=== PATIENT | female | born 1955 | race African-American/Black ===

== ENCOUNTER 2022-01-20 18:02 | Emergency (ER) | payer BC, OTHER ==
[~2022-01-20] VITALS: Ht 152.4 cm; Wt 74.0 kg
[2022-01-20 18:09] VITALS: BP 175/63
[2022-01-20 19:16] LABS: BASOPHILS % 0.9 % (0.0-2.0); EOSINOPHILS % 1.5 % (0.0-5.0); HEMATOCRIT. 38.3 % (36.0-48.0); HEMOGLOBIN. 12.6 g/dL (12.0-16.0); LYMPHOCYTES % 30.5 % (20.0-50.0); MEAN CORPUSCULAR HEMOGLOBIN 28.3 pg (28.0-32.0); MEAN CORPUSCULAR VOLUME 86.1 fL (81.0-99.0); MEAN PLATELET VOLUME 8.5 fl (7.4-10.4); MONOCYTES % 6.9 % (2.0-8.0); NEUTROPHILS % 60.2 % (40.0-76.0); PLATELET 313 x1000/uL (130-400); RED BLOOD CELL COUNT 4.45 mill/uL (4.2-5.4); RED CELL DISTRIBUTION WIDTH 16.7 % (11.6-14.6)
== END 2022-01-20 19:31 | disposition home or self-care (01) ==
LOC: ER 18:02
DX: R04.0 Epistaxis (principal); R03.0 Elevated blood-pressure reading, without diagnosis of hypertension
CPT/HCPCS: 36415; 85025; 99283

== ENCOUNTER 2022-01-20 23:21 | Emergency (ER) | payer BC ==
[~2022-01-20] VITALS: Ht 162.6 cm; Wt 82.3 kg
[2022-01-20 23:27] VITALS: BP 191/85
== END 2022-01-21 01:44 | disposition home or self-care (01) ==
LOC: ER 23:21
DX: R04.0 Epistaxis (principal); E78.00 Pure hypercholesterolemia, unspecified; I10 Essential (primary) hypertension; Z98.890 Other specified postprocedural states
CPT/HCPCS: 99281

== ENCOUNTER 2022-01-23 14:11 | Emergency (ER) | payer BC ==
[~2022-01-23] VITALS: Ht 152.4 cm; Wt 82.0 kg
[2022-01-23 14:26] VITALS: BP 197/69
[2022-01-23 15:32] LABS: BASOPHILS % 0.6 % (0.0-2.0); EOSINOPHILS % 0.8 % (0.0-5.0); HEMATOCRIT. 36.2 % (36.0-48.0); HEMOGLOBIN. 11.8 g/dL (12.0-16.0); LYMPHOCYTES % 36.6 % (20.0-50.0); MEAN CORPUSCULAR HEMOGLOBIN 28.1 pg (28.0-32.0); MEAN CORPUSCULAR VOLUME 86.2 fL (81.0-99.0); MEAN PLATELET VOLUME 8.4 fl (7.4-10.4); MONOCYTES % 6.2 % (2.0-8.0); NEUTROPHILS % 55.8 % (40.0-76.0); PLATELET 308 x1000/uL (130-400); RED CELL DISTRIBUTION WIDTH 16.8 % (11.6-14.6)
[2022-01-23 15:40] LABS: CHLORIDE 107 mEq/L (98-107)
[2022-01-23 15:44] LABS: PROTHROMBIN TIME 10.8 sec (9.6-11.0)
[2022-01-23] MEDS ORDERED: VISCOUS LIDOCAINE 2% 15 ML UDC MM STA (16:39)
== END 2022-01-23 17:25 | disposition home or self-care (01) ==
LOC: ER 14:11
DX: R04.0 Epistaxis (principal); I10 Essential (primary) hypertension; E78.00 Pure hypercholesterolemia, unspecified; Z98.890 Other specified postprocedural states; Z88.5 Allergy status to narcotic agent
CPT/HCPCS: 36415; 80053; 85025; 99283